=== PATIENT | female | born 1985 | race Caucasian/White ===

== ENCOUNTER 2017-02-16 00:16 | Emergency (ER) | payer SELFPAY ==
[2017-02-16 00:32] VITALS: BP 133/94; PULSE 95; RESP 18; TEMP 98.1; O2SAT 95
--- NOTE | 2017-02-16 00:54 | EDPHY ---
H & P Stated Complaint: anxiety 2dary to being at [facility] Time Seen by Provider: 02/16/17 00:21 HPI/ROS: CHIEF COMPLAINT: Anxiety HISTORY OF PRESENT ILLNESS: 32-year-old female presents emergency department from the [facility] for anxiety. Patient's boyfriend called the police earlier in the evening as he was concerned about the patient's drinking. The police brought her to the [facility]. Patient states she became very anxious there as she was surrounded by drug users and she did not feel safe. Patient states she drinks daily, has worsened over the past year since her mother . Patient denies history of alcohol withdrawals or alcohol withdrawal seizures. Patient denies suicidal ideations. She denies hallucinations. Patient is requesting to go home. She denies chest pain or shortness of breath. Patient is tearful. REVIEW OF SYSTEMS: A comprehensive 10 point review of systems is otherwise negative aside from elements mentioned in the history of present illness. Source: Patient Exam Limitations: No limitations - Personal History LMP (Females 10-55): 15-21 Days Ago Current Tetanus/Diphtheria Vaccine: Unsure Current Tetanus Diphtheria and Acellular Pertussis (TDAP): Unsure - Medical/Surgical History Hx Asthma: No Hx Chronic Respiratory Disease: No Hx Diabetes: No Hx Cardiac Disease: No Hx Renal Disease: No Hx Cirrhosis: No Hx Alcoholism: No Hx HIV/AIDS: No Hx Splenectomy or Spleen Trauma: No Other PMH: denies - Social History Smoking Status: Heavy smoker Alcohol Use: Heavy - Physical Exam Exam: Physical Exam Gen: Alert and Oriented, tearful HEENT: PERRL, moist mucous membranes NECK: no meningismus CV: regular rate and regular rhythm PULM: CTAB, no wheezes ABDOMEN: soft, non tender to palpation, BS present BACK: No CVA tenderness NEURO: Neurologically grossly intact, no tongue fasciculations, no hand tremors , no hallucinations, steady gait EXTREMITIES: normal appearing SKIN: no rash or break in skin on exposed skin PSYCH: answers questions appropriately. Constitutional: Initial Vital Signs Temperature (C) 36.7 C 02/16/17 00:31 Heart Rate 95 02/16/17 00:31 Respiratory Rate 18 02/16/17 00:31 Blood Pressure 133/94 H 02/16/17 00:31 O2 Sat (%) 95 02/16/17 00:31 O2 Delivery Mode Room Air Allergies/Adverse Reactions: No Known Allergies Allergy (Unverified 02/16/17 00:33) Home Medications: Medication Instructions Recorded NK [No Known Home Meds] 02/16/17 Medical Decision Making ED Course/Re-evaluation: 32-year-old female presents complaining of anxiety from the [facility]. Patient is clinically sober, she has no evidence of alcohol withdrawal. She is alert, oriented, tearful and remorseful. I have spoken with Nehemiah from [facility] mental health deputy county clerk, he has brought me resources to provide the patient with for assistance with alcohol cessation. Patient is appreciative of this. She will be discharged home in stable condition. Patient is given return precautions for any new symptoms or concerns. Departure - Departure Disposition: Home, Routine, Self-Care Clinical Impression: Alcohol abuse Condition: Good Instructions: Alcohol Dependence (ED) Additional Instructions: 1. Please follow-up with the mental health and detox resources provided in the ED today. 2. Count Includes The [facility] does operate a 24/ psychiatric crisis unit located at [address] The telephone number for the 24 hour crisis center is [phone]. 3. Please return to the ED if you are feeling suicidal, having thoughts of harming yourself/others or should you feel unsafe or have worsening symptoms. Referrals: [facility] [Outside] - As per Instructions
== END 2017-02-16 01:32 | disposition home or self-care (01) ==
DX: F10.10 Alcohol abuse, uncomplicated (principal); F17.200 Nicotine dependence, unspecified, uncomplicated